=== PATIENT | male | born 1985 | race Caucasian/White ===

== ENCOUNTER 2021-08-04 19:33 | Emergency (ER) | payer MEDICARE, MEDICAID, SELFPAY ==
[2021-08-04 20:27] VITALS: BP 122/66; PULSE 68; RESP 16; TEMP 37.2; O2SAT 99; BMI 20.5
--- NOTE | 2021-08-04 22:22 | ED_ITS ---
HPI - Skin/Abscess/Foreign Bdy General Chief complaint: Skin/Abscess/Foreign Body Stated complaint: piece of metal in finger Time Seen by Provider: 08/04/21 22:21 Source: patient Mode of arrival: ambulatory Limitations: no limitations History of Present Illness HPI narrative: Patient was working on the car small metal wire went into his right thumb he removed the part of it does still feel small part the left thumb other injuries Related Data Allergies Allergy/AdvReac Type Severity Reaction Status Date / Time No Known Allergies Allergy Verified 08/04/21 20:30 Review of Systems Review of Systems: Yes all other systems are reviewed and are negative [facility] Past Medical History Attestation statement: The following information was validated with the patient. Social History Social History Advance Directives: No Advance Directives Information Provided: No Physical Exam Vital Signs: Vital Signs: Last Vital Signs Temp 98.9 F 08/04/21 20:27 Pulse 68 08/04/21 20:27 Resp 16 08/04/21 20:27 BP 122/66 08/04/21 20:27 Pulse Ox 99 08/04/21 20:27 BMI result Body Mass Index 20.5 Extrem: Hand/finger images: 1. Small piece of metal at the tip of right thumb with local tenderness Procedures Foreign Body Removal Time Out Performed: yes Site: right and hand (Right thumb) Description of foreign body: other (Metal wire) Sedation/Analgesia: other (Local infiltration of lidocaine) Technique: manual removal (Using needle) Confirmed by:: direct visualization Complications: none Discharge Plan Discharge Clinical Impression: Metal foreign body in thumb Patient Disposition: Home, Self-Care Instructions: Soft Tissue Foreign Body (ED) Additional Instructions: Local care of the wound as advised Report to the ER/PCP if any concerns/increased pain or swelling
[2021-08-04] MEDS: Lidocaine HCl 2 % MPF 5 ML VIAL INFILTRATI (22:48)
[2021-08-04] MEDS: Diphth,Pertus(ACell),Tet Adult 0.5 ML SYRINGE IM (23:19)
== END 2021-08-04 23:24 | disposition home or self-care (01) ==
PROVIDERS: Emergency Provider Internal Medicine; PCP Nurse Practitioner Family
DX: M79.5 Residual foreign body in soft tissue (principal)
CPT/HCPCS: 10120; 90471; 90715; 99283; 99284

== ENCOUNTER 2022-12-13 17:20 | Emergency (ER) | payer MEDICARE, MEDICAID, SELFPAY ==
[2022-12-13 17:57] VITALS: BP 126/80; PULSE 62; RESP 16; TEMP 37.4; O2SAT 97; BMI 21.6
--- NOTE | 2022-12-13 17:57 | ED_ITS ---
HPI - Skin/Abscess/Foreign Bdy General Chief complaint: Skin/Abscess/Foreign Body Stated complaint: body rash Time Seen by Provider: 12/13/22 17:58 Source: patient Mode of arrival: ambulatory Limitations: no limitations History of Present Illness HPI narrative: 37 yo male here with complaints of itching rash x 1 month despite completing 7 day course of prednisone. Patient reports he has been using Cetaphil products. He has also use cortisone 10 intermittently. The rash is itchy at night time more. No difficulty breathing, vomiting, diarrhea, abdominal cramping. No new medications, products, detergents. Related Data Previous Rx's Medication Instructions Recorded cetirizine 10 mg tablet (Zyrtec) 10 mg PO DAILY #30 tabs 12/13/22 hydrocortisone 2.5 % topical cream 1 appl topical QID PRN itching 12/13/22 #453.6 grams hydroxyzine HCl 50 mg tablet 50 mg PO TID PRN itching #30 tabs 12/13/22 prednisone 20 mg tablet 40 mg PO DAILY #14 tabs 12/13/22 Allergies Allergy/AdvReac Type Severity Reaction Status Date / Time No Known Allergies Allergy Verified 12/13/22 17:57 Review of Systems Review of Systems: Yes all other systems are reviewed and are negative Constitutional: Constitutional: Reports no additional constitutional complaints, Denies body ache(s), Denies chills, Denies fever(s), Denies headache(s) and Denies weakness Eyes: Eyes: Reports no additional eye complaints and Denies change in vision ENT: Reports system reviewed and no additional complaints, except as docume nted, Denies dizziness, Denies headache(s), Denies nasal congestion, Denies nasal discharge and Denies neck pain Cardiovascular: Cardiovascular: Reports no additional cardiovascular complaints, Denies chest pain, Denies leg edema and Denies dyspnea Respiratory: Respiratory: Reports no additional respiratory complaints, Denies cough and Denies dyspnea Gastrointestinal: Gastrointestinal: Reports no additional gastrointestinal complaints, Denies abdominal pain, Denies diarrhea, Denies nausea and Denies vomiting Genitourinary: Genitourinary: Denies urinary incontinence Musculoskeletal: Musculoskeletal: Reports no additional musculoskeletal complaints, Denies back pain, Denies arthralgias, Denies joint swelling, Denies neck pain, Denies numbness and Denies tingling Integumentary/Breasts: Skin/Breast: Reports system reviewed and no additional complaints, except as docu and Reports rash Neurologic: Reports system reviewed and no additional complaints, except as documented, Denies Abnormal speech present, Denies dizziness, Denies headache (s), Denies numbness, Denies tingling and Denies weakness PMFSH Past Medical History Attestation statement: The following information was validated with the patient. Source: old records reviewed and nursing notes reviewed Social History Social History Advance Directives: No Advance Directives Information Provided: No Physical Exam Vital Signs: Vital Signs: Last Vital Signs Temp 99.3 F 12/13/22 17:57 Pulse 62 12/13/22 17:57 Resp 16 12/13/22 17:57 BP 126/80 12/13/22 17:57 Pulse Ox 97 12/13/22 17:57 O2 Del Method Room Air 12/13/22 17:57 BMI result Body Mass Index 21.6 Const: General: cooperative, healthy appearing, comfortable and no acute distress Orientation/consciousness: patient oriented x3 Limitations: no limitations HEENT: Head: Yes normal to inspection Ears: hearing grossly normal bilaterally General nose exam: Normal external nose present Face and sinus: Yes normal facial exam Mouth: Normal oral and palatal mucosa present Throat: Yes posterior oropharynx normal Eyes: General: appearance normal, both eyes and all related structures Pupils: Equal, round and reactive pupils present Neck: Neck: Yes normal visual inspection Chest: Chest palpation & inspection: normal inspection of the chest Resp: Effort & Inspection: normal respiratory effort Auscultation: clear to auscultation bilaterally Cardio: Rate: regular rate Rhythm: regular rhythm Peripheral pulses: Peripheral pulses 2+ throughout GI: Inspection: Yes normal to inspection Palpation (GI): Soft to palpation and nontender Auscultation: normal bowel sounds Back/Spine/Pelvis: Thoracic/Lumbar Spine: thoracic and lumbar spine normal to inspection Skin: Other: Over the trunk, arms there is a macular papular rash noted. It is blanchable. It is non sloughing. The palms are spared. The oropharynx is spared Neuro: General: patient oriented x3, no focal motor deficits and normal sensation to monofilament Cranial nerves: Yes Equal, round and reactive pupils present Cognition (Neuro): normal cognition Speech: No Abnormal speech present Gait exam (Neuro): Normal gait present Motor exam (neuro): 5/5 motor strength present throughout Extrem: General: Yes normal to inspection Medical Decision Making Medical Decision Making MDM Narrative: 37 yo male here with complaints of itching rash x 1 month despite completing 7 day course of prednisone. Patient reports he has been using Cetaphil products. He has also use cortisone 10 intermittently. The rash is itchy at night time more. No difficulty breathing, vomiting, diarrhea, abdominal cramping. No new medications, products, detergents. On exam is a macular papular rash which is blanchable. The oropharynx and palms are spared. Lungs are clear No angioedema May be dermatitis. Patient would likely benefit from Dermatology referral due to length of symptoms. He will need to obtain this from his primary care. And the meantime I will start him back on a prednisone course, give him hydroxyzine p.r.n., hydrocortisone p.r.n., Zyrtec daily Reviewed worrisome signs and symptoms of when to return to the emergency room. Comfortable plan for discharge home. Differential Diagnosis Differential Diagnoses: The differential diagnosis associated with the presentation includes Dermatitis Low concern for SJS or TEN or dress syndrome Admission/Observation Consideration of admission/observation: Escalation of care including admission/observation considered No airway involvement or angioedema necessitating IV steroids or epinephrine and observation Prescription Management I considered prescription management with: Other (Prednisone) Discharge Plan Discharge Clinical Impression: Urticaria Patient Disposition: Home, Self-Care Instructions: Urticaria (ED) Additional Instructions: Follow-up with primary care doctor and ask for referral to see Dermatology Prescriptions: New prednisone 20 mg tablet 40 mg PO DAILY Qty: 14 0RF cetirizine [Zyrtec] 10 mg tablet 10 mg PO DAILY Qty: 30 0RF hydroxyzine HCl 50 mg tablet 50 mg PO TID PRN (Reason: itching) Qty: 30 0RF hydrocortisone 2.5 % cream 1 appl topical QID PRN (Reason: itching) Qty: 453.6 0RF Referrals: Brianna Mcneal, [employer] [Primary Care Provider] - 1 week
== END 2022-12-13 18:14 | disposition home or self-care (01) ==
PROVIDERS: Emergency Provider Student in an Organized Health Care Education/Training Program; PCP Nurse Practitioner Family
DX: L50.9 Urticaria, unspecified (principal)
CPT/HCPCS: 99282; 99283

== ENCOUNTER 2023-04-18 08:14 | Emergency (ER) | payer MEDICARE, MEDICAID, SELFPAY ==
--- NOTE | ~2023-04-18 | CT_ITS ---
EXAMINATION: CT ABDOMEN AND PELVIS WITHOUT CONTRAST CLINICAL INFORMATION: Left flank and lower abdominal pain. COMPARISON: None available. TECHNIQUE: Multidetector volumetric imaging was performed from the superior aspect of the liver through the pubic symphysis. Sagittal and coronal reformatted images were obtained on the technologist's workstation. This CT examination was performed using dose optimization techniques as appropriate, variously including the following: *Automated exposure control *Adjustment of mA and/or kV according to patient size (this includes techniques or standardized protocols for targeted exams where dose is matched to indication/reason for exam; i.e. extremities or head) *Use of iterative reconstruction technique DLP: 382 mGy-cm FINDINGS: Lung bases are unremarkable. Liver, gallbladder, pancreas and spleen have a normal appearance on this noncontrast examination. Adrenal glands are normal. Kidneys are normal in size. Questionable finding of punctate calyceal stone of the mid right kidney (coronal reformatted image 47, series 5). No large stones in either kidney. Mild left hydronephrosis and hydroureter with perinephric edema. A stone measuring up to 0.4 cm projects along left posterior bladder wall in the region of the ureteral orifice. Urinary bladder is underdistended and not optimally evaluated. Abdominal aorta is normal in caliber. No pathologic sized lymph nodes. No dilated bowel loops. The appendix is normal. No focal bowel wall thickening, mesenteric fat stranding or free fluid. A small fat-containing umbilical hernia is noted. Prostate gland is unremarkable. No pelvic free fluid. No acute or suspicious osseous abnormality. Mild osteoarthrosis of the hips. The configuration of each femoral head suggests that there could be a predisposition to cam-type femoroacetabular impingement. CT/CT abdomen pelvis wo IV con IMPRESSION: Mild left hydronephrosis and mild perinephric edema are caused by a stone seen at the posterior left urinary bladder, likely within the ureteral orifice at the ureterovesical junction.
[2023-04-18 08:31] VITALS: BP 149/76; PULSE 83; RESP 18; TEMP 36.7; O2SAT 97
[2023-04-18 09:13] LABS: Anion Gap 13 (12-20); Blood Urea Nitrogen 13 mg/dL (9-16); Calcium 9.3 mg/dL (8.4-10.2); Carbon Dioxide 26 mmol/L (22-29); Chloride 106 mmol/L (96-108); Estimated Glomerular Filt Rate > 60; Glucose Random 118 mg/dL (60-115); Potassium 4.2 mmol/L (3.3-5.1); Sodium 141 mmol/L (135-145)
[2023-04-18 10:05] LABS: IDNOW Serial# 08D9AD1C; Influenza A Negative (Negative); Influenza B2 Negative (Negative)
[2023-04-18 10:06] VITALS: RESP 17
--- NOTE | 2023-04-18 10:07 | ED.ABDPAIN ---
HPI - Abdominal Pain General Chief Complaint: Abdominal Pain Stated Complaint: Abd pain Time Seen by Provider: 04/18/23 10:04 Source: patient Mode of arrival: ambulatory Limitations: no limitations History of Present Illness HPI narrative: left lower and left flank pain starting this morning, no prior surgeries no history of renal colic MD elicited complaint: abdominal pain and flank pain Related Data Previous Rx's Medication Instructions Recorded cetirizine 10 mg tablet (Zyrtec) 10 mg PO DAILY #30 tabs 12/13/22 hydrocortisone 2.5 % topical cream 1 appl topical QID PRN itching 12/13/22 #453.6 grams hydroxyzine HCl 50 mg tablet 50 mg PO TID PRN itching #30 tabs 12/13/22 prednisone 20 mg tablet 40 mg (2 x 20 mg) PO DAILY #14 tabs 12/13/22 naproxen 500 mg tablet (Naprosyn) 500 mg PO BID #20 tabs 04/18/23 ondansetron 4 mg disintegrating 4 mg PO Q8H 4 days #12 tabs 04/18/23 tablet Allergies Allergy/AdvReac Type Severity Reaction Status Date / Time No Known Allergies Allergy Verified 12/13/22 17:57 Review of Systems Review of Systems Yes all other systems are reviewed and are negative Denies Sensory deficit (Neuro) [facility] Social History Social History Advance Directives: No Physical Exam ED Vital Signs: Vital Signs - 24 hr 04/18/23 08:31 04/18/23 10:06 Temperature 98.1 F Pulse Rate 83 Respiratory Rate 18 17 Blood Pressure 149/76 H Pulse Oximetry 97 Oxygen Delivery Method Room Air BMI result Body Mass Index 0.0 Const Other: in colicky pain General: healthy appearing Nutritional Appearance: average body habitus Orientation/consciousness: oriented to person and patient oriented x3 Limitations: no limitations HENMT Head: Yes normal to inspection Ears: external ears normal General nose exam: Normal external nose present Mouth: Normal oral and palatal mucosa present and oropharynx normal Throat: Yes posterior oropharynx normal Eyes General: appearance normal, both eyes and all related structures Neck Neck: Yes normal visual inspection Chest Chest palpation & inspection: normal inspection of the chest Resp Auscultation: clear to auscultation bilaterally Cardio Jugular venous distension: no JVD Rate: regular rate Rhythm: regular rhythm Heart sounds: S1 normal heart sound present and S2 normal heart sound present GI Inspection: Yes normal to inspection Palpation (GI): Soft to palpation, nontender and No hepatosplenomegaly present Auscultation: normal bowel sounds Back/Spine/Pelvis Other: left CVAT Skin General skin exam: no rashes or lesions noted Neuro General: oriented to person and patient oriented x3 Cranial nerves: Yes CN's II-XII intact bilaterally Motor exam (neuro): 5/5 motor strength present throughout Sensory Exam: No Sensory deficit (Neuro) Extrem General: Yes normal to inspection Psych Appearance: grossly normal Course Reevaluation(s) Reevaluation #1: Patient improved looks like he passed his stone on CT Time: 11:35 Time: 11:34 Medical Decision Making Differential Diagnosis Differential Diagnoses: The differential diagnosis associated with the presentation includes (kidney stone, hydronephrosis, pyelonephrosis were all considered) Admission/Observation Consideration of admission/observation: Escalation of care including admission/observation considered (upon arrival patient was considered for admission) Lab Data 04/18/23 08:50 Labs: Lab Results 04/18/23 04/18/23 Range/Units 08:50 10:25 Sodium 141 (135-145) mmol/L Potassium 4.2 (3.3-5.1) mmol/L Chloride 106 (96-108) mmol/L Carbon Dioxide 26 (22-29) mmol/L Anion Gap 13 (12-20) BUN 13 (9-16) mg/dL Creatinine 0.90 (0.5-1.4) mg/dL Estim Creat Clear Calc TNP Estimated GFR > 60 Random Glucose 118 H (60-115) mg/dL Calcium 9.3 (8.4-10.2) mg/dL Urine Color Yellow Urine Appearance Cloudy Urine pH 5.5 (5.0-9.0) Ur Specific [place] >= 1.030 H (1.005-1.025) Urine Protein 30 (1+) H (Neg-Trace) mg/dL Urine Glucose (UA) Negative (Negative) mg/dL Urine Ketones Trace (Negative) mg/dL Urine Blood Large (3+) H (Negative) Urine Nitrite Negative (Negative) Ur Leukocyte Esterase Trace H (Negative) Urine RBC 11-20 H (0-2) /HPF Urine WBC 0-5 (0-5) /HPF Ur Squamous Epith Cells 0-2 (0-2) /HPF Calcium Oxalate Crystal Present Urine Bacteria None Seen (None Seen) Hyaline Casts 0-2 (0-2) /LPF Influenza Type A (NILE) Negative (Negative) Influenza Type B (NILE) Negative (Negative) Influenza A & B Note See Note Independent Interpretation I performed an independent interpretation of an: CT Scan (mild left hydro with mild perinephric stranding) Independent Historian Clinical information obtained from an independent historian. History obtained from or confirmed by: EMS Prescription Management I considered prescription management with: Antibiotic (no evidence of UTI on UA) Medications Administered Discontinued Medications Generic Name Dose Route Start Last Admin Trade Name Freq PRN Reason Stop Dose Admin Sodium Chloride 500 mls @ 999 mls/hr 04/18/23 10:15 04/18/23 10:18 Ns IV 04/18/23 10:45 999 mls/hr .Q31M HILARIO Administration Ketorolac Tromethamine 30 mg 04/18/23 10:07 04/18/23 10:18 Ketorolac Tromethamine 30 Mg/Ml Vial IVPUSH 04/18/23 10:08 30 mg ONCE ONE Administration Ondansetron HCl 4 mg 04/18/23 10:09 04/18/23 10:18 Ondansetron Hcl 4 Mg/2 Ml Vial IVPUSH 04/18/23 10:10 4 mg ONCE ONE Administration Discharge Plan Discharge Clinical Impression: Kidney stone, Hydronephrosis Patient Disposition: Home, Self-Care Instructions: Kidney Stones (ED), Hydronephrosis (ED) Prescriptions: New ondansetron 4 mg tablet,disintegrating 4 mg PO Q8H 4 Days Qty: 12 0RF naproxen [Naprosyn] 500 mg tablet 500 mg PO BID Qty: 20 0RF No Action prednisone 20 mg tablet 40 mg PO DAILY Qty: 14 0RF cetirizine [Zyrtec] 10 mg tablet 10 mg PO DAILY Qty: 30 0RF hydroxyzine HCl 50 mg tablet 50 mg PO TID PRN (Reason: itching) Qty: 30 0RF hydrocortisone 2.5 % cream 1 appl topical QID PRN (Reason: itching) Qty: 453.6 0RF Referrals: Brianna Mcneal, [employer] [Primary Care Provider] - 5 days
[2023-04-18] MEDS: Ketorolac Tromethamine 30 MG/ML VIAL IVPUSH (10:18)
[2023-04-18] MEDS: 0.9 % Sodium Chloride 500 ML 999 ML IV (10:18)
[2023-04-18] MEDS: ondansetron HCL 4 MG/2 ML VIAL IVPUSH (10:18)
[2023-04-18 10:46] LABS: Appearance Urine Cloudy; Color Urine Yellow; Glucose Urine UA Negative (Negative); Leukocyte Esterase Urine Trace (Negative); Nitrite Urine Negative (Negative); PH 5.5 (5.0-9.0); Specific Gravity - Urine >= 1.030 (1.005-1.025); UMIC TRIGGER UACC YES; Urine Blood Large (3+) (Negative); Urine Ketones Trace mg/dL (Negative); Urine Protein 30 (1+) mg/dL (Neg-Trace)
[2023-04-18 11:16] LABS: WBC Urine 0-5 /HPF (0-5)
[2023-04-18 11:17] LABS: Bacteria Urine None Seen (None Seen); Hyaline Casts Urine 0-2 /LPF (0-2); Squamous Epithelial Cell Urine 0-2 /HPF (0-2)
[2023-04-18 11:18] LABS: Calcium Oxalate Crystals Urine Present
== END 2023-04-18 11:54 | disposition home or self-care (01) ==
PROVIDERS: Emergency Provider Emergency Medicine; PCP Nurse Practitioner Family
DX: N13.2 Hydronephrosis with renal and ureteral calculous obstruction (principal); Z11.52 Encounter for screening for COVID-19
CPT/HCPCS: 74176; 80048; 81001; 87502; 96361; 96374; 96375; 99284; J1885; J2405

== ENCOUNTER 2023-07-07 21:12 | Emergency (ER) | payer MEDICARE, MEDICAID, SELFPAY ==
[2023-07-07 21:15] VITALS: BP 143/84; PULSE 66; RESP 18; TEMP 37; O2SAT 99; BMI 23.1
--- NOTE | 2023-07-07 21:52 | ED.GENADULT ---
HPI - General Adult General Chief complaint: Dental/Oral Stated complaint: root canal 2-3 months ago, still in pain Time Seen by Provider: 07/07/23 21:42 Source: patient Mode of arrival: ambulatory Limitations: no limitations History of Present Illness HPI narrative: Patient is a 37 year old assigned male at with no reported medical history presenting to the emergency department today with left lower dental pain. Patient states that 2-3 months ago he got a root canal and crown on his left lower molar and he has not been able to eat on that side since. Patient denies any dizziness, lightheadedness, abdominal pain, nausea, vomiting, fever, chills, blurry vision, double vision, loss of vision, chest pain, difficulty breathing, shortness of breath, back pain, night sweats, pain with urination, increased urinary frequency, increased urinary urgency, blood in his urine or stool, syncope or a near syncopal episode, recent trauma or falls, bowel incontinence, bladder incontinence, bowel retention, bladder retention, or any other complaints at this time. Onset (ago): month(s) (2-3) Location: mouth and left Radiation: non-radiation Severity: mild Severity scale (1-10): 4 Quality: aching and dull Pain Consistency: constant Relieving factors: none Exacerbating factors: other (chewing) Associated symptoms: denies other symptoms Treatments prior to arrival: none Related Data Previous Rx's Medication Instructions Recorded cetirizine 10 mg tablet (Zyrtec) 10 mg PO DAILY #30 tabs 12/13/22 hydrocortisone 2.5 % topical cream 1 appl topical QID PRN itching 12/13/22 #453.6 grams hydroxyzine HCl 50 mg tablet 50 mg PO TID PRN itching #30 tabs 12/13/22 prednisone 20 mg tablet 40 mg (2 x 20 mg) PO DAILY #14 tabs 12/13/22 naproxen 500 mg tablet (Naprosyn) 500 mg PO BID #20 tabs 04/18/23 ondansetron 4 mg disintegrating 4 mg PO Q8H 4 days #12 tabs 04/18/23 tablet naproxen 500 mg tablet 500 mg PO BID 7 days #14 tabs 07/07/23 penicillin V potassium 500 mg 500 mg PO BID 10 days #20 tabs 07/07/23 tablet Allergies Allergy/AdvReac Type Severity Reaction Status Date / Time No Known Allergies Allergy Verified 12/13/22 17:57 Review of Systems Constitutional: Constitutional: Reports no additional constitutional complaints, Denies chills, Denies fever(s) and Denies night sweats Eyes: Eyes: Reports no additional eye complaints, Denies blurry vision, Denies change in vision, Denies diplopia, Denies eye discharge, Denies loss of vision and Denies eye pain ENT: Denies dizziness Comments: left lower dental pain Cardiovascular: Cardiovascular: Reports no additional cardiovascular complaints, Denies chest pain, Denies lightheadedness, Denies Loss of Consciousness and Denies dyspnea Respiratory: Respiratory: Reports no additional respiratory complaints and Denies dyspnea Gastrointestinal: Gastrointestinal: Reports no additional gastrointestinal complaints, Denies abdominal pain, Denies melena, Denies hematochezia, Denies change in bowel habits and Denies change in stool character Genitourinary: Genitourinary: Reports no additional male genitourinary complaints, Denies hematuria, Denies oliguria, Denies difficulty urinating, Denies dysuria, Denies urinary frequency, Denies urinary hesitancy, Denies urinary incontinence and Denies urinary urgency Musculoskeletal: Musculoskeletal: Reports no additional musculoskeletal complaints, Denies numbness and Denies tingling Neurologic: Denies dizziness, Denies loss of vision, Denies numbness and Denies tingling Psychiatric: Psychiatric: Reports no additional psychiatric complaints Endocrine: Endocrine: Reports no additional endocrine complaints Hematologic/Lymphatic: Hematologic/Lymphatic: Reports no additional hematologic/lymphatic complaints Allergic/Immunologic: Allergic/Immunologic: Reports no additional allergic/immunologic complaints [facility] Past Medical History Attestation statement: The following information was validated with the patient. Source: old records reviewed and nursing notes reviewed Social History Social History Advance Directives: No Advance Directives Information Provided: No Physical Exam ED Vital Signs: Vital Signs - 24 hr 07/07/23 21:15 07/07/23 21:56 07/07/23 22:05 Temperature 98.6 F 98.0 F Pulse Rate 66 61 Respiratory Rate 18 12 Blood Pressure 143/84 H 127/76 Pulse Oximetry 99 97 Oxygen Delivery Method Room Air Room Air 07/07/23 22:24 Temperature 98.0 F Pulse Rate 61 Respiratory Rate 12 Blood Pressure 127/76 Pulse Oximetry 97 Oxygen Delivery Method Room Air BMI result Body Mass Index 23.1 Const General: cooperative, no acute distress, alert and awake Nutritional Appearance: well nourished Orientation/consciousness: patient oriented x3 Limitations: no limitations HENMT Head: Yes normal to inspection and Yes atraumatic Ears: hearing grossly normal bilaterally and external ears normal General nose exam: Normal external nose present, no nasal discharge noted and no epistaxis Face and sinus: Yes normal facial exam, No abrasion and No laceration Mouth: Normal oral and palatal mucosa present, no drooling and no muffled voice Teeth image: 1. pain with palpation of tooth 17 and 18 Eyes General: appearance normal, both eyes and all related structures Periorbital: periorbital findings normal Eyelids: Yes eyelids normal Conjunctivae: conjunctivae normal Pupils: Equal, round and reactive pupils present EOM: EOMs intact bilaterally Neck Neck: Yes normal visual inspection, Yes full ROM and Yes no lymphadenopathy Chest Chest palpation & inspection: normal inspection of the chest Resp Effort & Inspection: normal respiratory effort and able to speak in complete sentences GI Inspection: Yes normal to inspection Neuro General: patient oriented x3 and moves all extremities Cranial nerves: Yes Equal, round and reactive pupils present Cognition (Neuro): normal cognition Motor exam (neuro): 5/5 motor strength present throughout Sensory Exam: Normal double simultaneous stimulation for sensation Coordination: [id number] test normal Extrem General: Yes normal to inspection, Yes full ROM and Yes capillary refill normal Psych Appearance: grossly normal Mental Status: mental status grossly normal Affect: normal affect Attitude: cooperative Thought process: Normal thought process present Thought content: Normal thought content present Insight: Good insight present (Psych) Medications Administered Discontinued Medications Generic Name Dose Route Start Last Admin Trade Name Evelioq PRN Reason Stop Dose Admin Oxycodone HCl 10 mg 07/07/23 21:52 07/07/23 22:03 Oxycodone Hcl Immed Release 5 Mg Tablet PO 07/07/23 21:53 10 mg ONCE ONE Administration Penicillin V Potassium 500 mg 07/07/23 21:52 07/07/23 22:03 Penicillin V Potassium 250 Mg Tablet PO 07/07/23 21:53 500 mg ONCE ONE Administration Medical Decision Making Medical Decision Making MDM Narrative: Patient is a 37 year old assigned male at with no reported medical history presenting to the emergency department today with left lower dental pain. Patient's physical exam showed tenderness of palpation of the left lower molars (17 and 18). I suspect that the patient's #18 tooth underneath the crown is decaying and will need to be removed. Will treat for possible underlying dental abscess. I explained my physical exam findings to the patient. I answered all questions asked by the patient. I stressed the importance of the patient taking his medication as prescribed. I stressed the importance of the patient following up with his primary care provider and his dentist. I stressed the importance of the patient returning to the emergency department immediately if his symptoms were to worsen or if he were to develop any dizziness, shortness of breath, difficulty breathing, chest pain, blurry vision, loss of vision, nausea, vomiting, abdominal pain, fever, chills, back pain, or any other complaints. Patient verbalized agreement and understanding with this treatment plan and discharge. Differential Diagnosis Differential Diagnoses: The differential diagnosis associated with the presentation includes Dental abscess Dental pain Admission/Observation Consideration of admission/observation: Escalation of care including admission/observation considered Patient would have been admitted to the hospital had his clinical presentation warranted hospital admission. Prescription Management I considered prescription management with: Pain Medication (patient prescribed pain medication) and Antibiotic (patient prescribed an antibiotic to cover possible dental abscess) Discharge Plan Discharge Clinical Impression: Dental abscess Patient Disposition: Home, Self-Care Instructions: Dental Abscess (ED) Additional Instructions: Follow up with your primary care provider and a dentist. Return to the emergency department immediately if your symptoms worsen or if you develop any dizziness, shortness of breath, difficulty breathing, chest pain, blurry vision, loss of vision, nausea, vomiting, abdominal pain, fever, chills, back pain, or any other complaints. Call or visit any of the clinics below to establish with a dentist: [facility] [address] [place] [address] [facility] [address] [facility], [address] Cricket Romero [address] [place] [address] [facility] [address] [place] [id number] [facility] [address] [place] [address] [place] [address] [place] [id number] Prescriptions: New penicillin V potassium 500 mg tablet 500 mg PO BID 10 Days Qty: 20 0RF naproxen 500 mg tablet 500 mg PO BID 7 Days Qty: 14 0RF No Action prednisone 20 mg tablet 40 mg PO DAILY Qty: 14 0RF cetirizine [Zyrtec] 10 mg tablet 10 mg PO DAILY Qty: 30 0RF hydroxyzine HCl 50 mg tablet 50 mg PO TID PRN (Reason: itching) Qty: 30 0RF hydrocortisone 2.5 % cream 1 appl topical QID PRN (Reason: itching) Qty: 453.6 0RF ondansetron 4 mg tablet,disintegrating 4 mg PO Q8H 4 Days Qty: 12 0RF naproxen [Naprosyn] 500 mg tablet 500 mg PO BID Qty: 20 0RF Referrals: Brianna Mcneal FLIGHT TEST ENGINEER [Primary Care Provider] - Stand Alone Forms: Work/School Release Interventions: ED Discharge Assessment Last Done: 07/07/23 22:24 Discharge Date/Time: 07/07/23 22:24 Print Language: Tamazight
[2023-07-07 21:56] VITALS: BP 127/76; PULSE 61; RESP 12; O2SAT 97
[2023-07-07] MEDS: oxyCODONE HCl Immed Release 5 MG TABLET 10 MG PO (22:03)
[2023-07-07] MEDS: Penicillin V Potassium 250 MG TABLET 500 MG PO (22:03)
[2023-07-07 22:05] VITALS: TEMP 36.7
[2023-07-07 22:24] VITALS: BP 127/76; PULSE 61; RESP 12; TEMP 36.7; O2SAT 97
== END 2023-07-07 22:24 | disposition home or self-care (01) ==
PROVIDERS: Emergency Provider Emergency Medicine Emergency Medical Services; PCP Nurse Practitioner Family
DX: K04.7 Periapical abscess without sinus (principal)
CPT/HCPCS: 99283; 99284

== ENCOUNTER 2024-08-29 05:20 | Emergency (ER) | payer OTHER, SELFPAY ==
[2024-08-29 05:22] VITALS: BP 127/74; PULSE 64; RESP 12; TEMP 36.6; O2SAT 99; BMI 23.9
--- NOTE | 2024-08-29 05:37 | ED_ITS ---
HPI - General Adult General Chief complaint: Back Pain/Injury Stated complaint: Neck/Back pain Time Seen by Provider: 08/29/24 05:30 Source: patient Mode of arrival: ambulatory Limitations: no limitations History of Present Illness ED Provider: Dr. Dominique Mendoza HPI narrative: Patient comes to the emergency room complaining of right-sided neck pain suprascapular area pain and upper back pain on the right. Patient states that he did not get injured in any way, no heavy lifting. Patient went to bed in the next day when he woke up he had that pain. Patient states it is worse when he moves certain ways. Patient has a hard time turning his head to the right and left, no issues with flexion and extension, no neck rigidity, patient denies fever chills Related Data Previous Rx's ?Medication ?Instructions ?Recorded cetirizine 10 mg tablet (Zyrtec) 10 mg PO DAILY #30 tabs 12/13/22 hydrocortisone 2.5 % topical cream 1 appl topical QID PRN itching 12/13/22 #453.6 grams hydroxyzine HCl 50 mg tablet 50 mg PO TID PRN itching #30 tabs 12/13/22 prednisone 20 mg tablet 40 mg (2 x 20 mg) PO DAILY #14 tabs 12/13/22 naproxen 500 mg tablet (Naprosyn) 500 mg PO BID #20 tabs 04/18/23 ondansetron 4 mg disintegrating 4 mg PO Q8H 4 days #12 tabs 04/18/23 tablet naproxen 500 mg tablet 500 mg PO BID 7 days #14 tabs 07/07/23 penicillin V potassium 500 mg 500 mg PO BID 10 days #20 tabs 07/07/23 tablet cyclobenzaprine 10 mg tablet 10 mg PO TID PRN muscle spasm #12 08/29/24 tabs ibuprofen 600 mg tablet 600 mg PO Q8H PRN fever or pain 08/29/24 #30 tabs Allergies Allergy/AdvReac Type Severity Reaction Status Date / Time No Known Allergies Allergy Verified 08/29/24 05:25 Review of Systems Review of Systems: Constitutional : No Weight loss, No Fever, No Chills, No Night Sweats, No Fatigue, No Malaise ENT/Mouth : No Hearing loss, No Ear Pain, No Nasal Congestion, No Sinus Pain, No Hoarseness, No sore throat, No Rhinorrhea, No Swallowing Difficulty Eyes: No Eye Pain, No Swelling, No Redness, No Foreign Body, No Discharge, No Vision Changes Cardiovascular : No Chest Pain, No SOB, No Dyspnea on Exertion, No Orthopnea, No Edema, No Palpitations Respiratory : No Cough, No Sputum, No Wheezing, No Smoke Exposure, No Dyspnea Gastrointestinal : No Nausea, No Vomiting, No Diarrhea, No Constipation, No abdominal Pain, No Hematochezia, No Melena Genitourinary : no irregular bleeding, No Dysuria, No Urinary Frequency, No Hematuria, No Urinary Incontinence, No Urgency, No Flank Pain, No Urinary Flow Changes, No Hesitancy Musculoskeletal : complaining of right-sided neck pain suprascapular area and upper back pain, No joint pain, No Myalgias, No Joint Swelling Skin : No Skin Lesions, No rash Neuro : No Weakness, No Numbness, No Paresthesias, No Loss of Consciousness, No Dizziness, No Headache Psych : No Anxiety/Panic, No Depression, No SI/HI/AH/VH, No Social Issues, Heme/Lymph: No Bruising, No Bleeding,No Lymphadenopathy Endocrine : No Polyuria, No Polydipsia, No Temperature Intolerance [facility] Social History Social History Do you have a plan to hurt others: No Plan Physical Exam ED Vital Signs: Vital Signs - 24 hr 08/29/24 05:22 Temperature 97.8 F Pulse Rate 64 Respiratory Rate 12 Blood Pressure 127/74 Pulse Oximetry 99 Oxygen Delivery Method Room Air BMI result Body Mass Index 23.9 Const Other: Appearance: Alert. Oriented X3. No acute distress. Eyes: Pupils equal, round and reactive to light. horizontal nystagmus ENT: Pharynx normal. Neck: Normal inspection. Neck supple. No lymph nodes noted. No crepitus, palpable neck spasms to the right side of the neck and suprascapular area. CVS: Normal heart rate and rhythm. Pulses normal. Normal S1 and S2 Respiratory: No respiratory distress. Breath sounds normal. No Wheezing. No rales Abdomen: Soft and nontender. No rigidity. No distention. Skin: Skin warm and dry. Normal skin color. Normal skin turgor. Extremities: No lower extremity edema. No Lacerations. No Rash Neuro: Oriented X 3. No motor deficit. No sensory deficit. Moving all extremities. No slurred speech. CN 2 through 12 grossly intact Psych: calm, cooperative, normal affect Course Course Course Narrative: patient complaining of right-sided neck pain that started after the patient woke up, consistent with torticollis on physical exam it was noted that patient has very obvious horizontal nystagmus. Patient states that he has has had nystagmus since he was a toddler Medical Decision Making Medical Decision Making [facility] Narrative: I discussed the physical exam with the patient, patient has torticollis Discharge Plan Discharge Clinical Impression: Acute torticollis Patient Disposition: Home, Self-Care Instructions: Spasmodic Torticollis (ED) Additional Instructions: Please follow-up with your primary care physician tomorrow. If you have any worsening or new symptoms, please return to the emergency room or call 911 Prescriptions: New ibuprofen 600 mg tablet 600 mg PO Q8H PRN (Reason: fever or pain) Qty: 30 0RF cyclobenzaprine 10 mg tablet 10 mg PO TID PRN (Reason: muscle spasm) Qty: 12 0RF Rx Instructions: do not drive or use machinery after taking this medication No Action prednisone 20 mg tablet 40 mg PO DAILY Qty: 14 0RF cetirizine [Zyrtec] 10 mg tablet 10 mg PO DAILY Qty: 30 0RF hydroxyzine HCl 50 mg tablet 50 mg PO TID PRN (Reason: itching) Qty: 30 0RF hydrocortisone 2.5 % cream 1 appl topical QID PRN (Reason: itching) Qty: 453.6 0RF penicillin V potassium 500 mg tablet 500 mg PO BID 10 Days Qty: 20 0RF naproxen 500 mg tablet 500 mg PO BID 7 Days Qty: 14 0RF ondansetron 4 mg tablet,disintegrating 4 mg PO Q8H 4 Days Qty: 12 0RF naproxen [Naprosyn] 500 mg tablet 500 mg PO BID Qty: 20 0RF Stand Alone Forms: Work/School Release Print Language: Lithuanian
[2024-08-29] MEDS: Ibuprofen 600 MG TABLET PO (05:48)
[2024-08-29 05:51] VITALS: BP 127/74; PULSE 64; RESP 12; TEMP 36.6; O2SAT 99
--- OUTSIDE RECORDS SUMMARY | 2024-08-29 05:57 | XMS_ITS | Clinical Summary ---
Author Organization [facility] Address [address] [place] [address] Care Team Providers Care Endocrinology Physician Name Role Phone Patient, Has No Pcp Or Ref Primary Care Provider Unavailable Allergies No known active allergies Medications cetirizine (ZyrTEC) 10 mg tablet SMARTSI Tablet(s) By Mouth Daily 3 Active clotrimazole (LOTRIMIN) 1 % solution 2 times a day. Apply to affected area 3 Active fluticasone propionate (FLONASE) 50 mcg/actuation nasal spray SMARTSI [place](s) Both Nares Every Morning 3 Active hydrocortisone 2.5% cream SMARTSIG:Topi bear 4 Times Daily PRN 3 Active ibuprofen (MOTRIN) 800 mg tablet SMARTSI Tablet(s) By Mouth 3 Times Daily PRN 3 Active levocetirizine (XYZAL) 5 mg tablet 2 Active betamethasone valerate (VALISONE) 0.1% creamIndications :Rash and nonspecific skin eruption Apply twice daily x 2 weeks to rash or itchy areas, then daily x 2 weeks, then 2-3 times a week as needed. Do not use on face, underarms, groin, breasts, or buttocks. 45 g 11 3 Active hydrOXYzine HCL (ATARAX) 10 mg tabletIndication s:Rash and nonspecific skin eruption TAKE 10MG (1 TAB) EVERY 6 HOURS NEEDED FOR ITCH 360 tablet 1 3 Active Active Problems No known active problems Social History Tobacco Use Types Packs/Day Years Used Date Smoking Tobacco: Never Assessed Sex and Gender Information Value Date Recorded Sex Assigned at Not on file Legal Sex Male 4:39 PM EDT Gender Identity Not on file Sexual Orientation Not on file Plan of Treatment Health Maintenance Due Date Last Done Comments HIV Screening 1986 Hepatitis C Screening 1985 Medicare AWV 10/05/1987 Varicella Vaccines (1 of 2 - 13+ 2-dose series) 10/05/1999 Hepatitis B Vaccines (1 of 3 - 19+ 3-dose series) 2005 COVID-19 Vaccine (1 - season) 2023 Alcohol/Substance Use Screening 04/09/2024 Depression Screening and Follow-Up 04/09/2024 Social Drivers of Health Annual Screening 04/09/2024 Influenza Vaccine (Season Ended) 2024 02/23/2016, 05/01/2013, 02/05/2012, Additional history exists DTaP,Tdap,and Td Vaccines (3 - Td or Tdap) 02/22/2026 02/23/2016, 03/06/2004 RSV Vaccine (60+ years old and patients) (1 - 1-dose 75+ series) 2061 Pneumococcal Vaccine: Pediatric (0-5 Years) and At-Risk Patients (6-50 Years) Aged Out No longer eligible based on patient's age to complete this topic Insurance [facility] MEDICARE Care Teams Endocrinology Physician Relationship Specialty Start Date End Date Patient, Has No Pcp Or Ref DO NOT EDIT THIS RECORD VIA PROVIDER ON THE FLY PCP - General College And Career Counselor 01/10/23
== END 2024-08-29 05:54 | disposition home or self-care (01) ==
LOC: HO.ED 05:55
PROVIDERS: Emergency Provider Emergency Medicine; PCP Nurse Practitioner Family
DX: M43.6 Torticollis (principal); M54.50 Low back pain, unspecified
CPT/HCPCS: 99283

== ENCOUNTER 2024-10-17 12:10 | Emergency (ER) | payer OTHER, SELFPAY ==
[2024-10-17 12:26] VITALS: BP 122/71; PULSE 66; RESP 16; TEMP 36.4; O2SAT 99; BMI 23.0
--- NOTE | 2024-10-17 12:29 | ED.GENADULT ---
HPI - General Adult General Chief complaint: GI Bleed Stated complaint: Rectal Bleed Time Seen by Provider: 10/17/24 12:50 Source: patient Mode of arrival: ambulatory Limitations: no limitations History of Present Illness ED Provider: Taty Cornelius HPI narrative: 39 yold male with no pmh presents to the ED for rectal bleeding for one week and mild rectal pain. patient denies any abdominal pain, nausea, vomiting, recent trauma, fever, or chills. Patient states stool is brown. Related Data Previous Rx's ?Medication ?Instructions ?Recorded cetirizine 10 mg tablet (Zyrtec) 10 mg PO DAILY #30 tabs 12/13/22 hydrocortisone 2.5 % topical cream 1 appl topical QID PRN itching 12/13/22 #453.6 grams hydroxyzine HCl 50 mg tablet 50 mg PO TID PRN itching #30 tabs 12/13/22 prednisone 20 mg tablet 40 mg (2 x 20 mg) PO DAILY #14 tabs 12/13/22 naproxen 500 mg tablet (Naprosyn) 500 mg PO BID #20 tabs 04/18/23 ondansetron 4 mg disintegrating 4 mg PO Q8H 4 days #12 tabs 04/18/23 tablet naproxen 500 mg tablet 500 mg PO BID 7 days #14 tabs 07/07/23 penicillin V potassium 500 mg 500 mg PO BID 10 days #20 tabs 07/07/23 tablet cyclobenzaprine 10 mg tablet 10 mg PO TID PRN muscle spasm #12 08/29/24 tabs ibuprofen 600 mg tablet 600 mg PO Q8H PRN fever or pain 08/29/24 #30 tabs Allergies Allergy/AdvReac Type Severity Reaction Status Date / Time No Known Allergies Allergy Verified 10/17/24 12:30 Review of Systems Review of Systems: rectal bleeding Yes all other systems are reviewed and are negative PMFSH Social History Social History Advance Directives: No Advance Directives Information Provided: Yes Do you have a plan to hurt others: No Plan Physical Exam ED Vital Signs: Vital Signs - 24 hr 10/17/24 12:26 Temperature 97.6 F Pulse Rate 66 Respiratory Rate 16 Blood Pressure 122/71 Pulse Oximetry 99 Oxygen Delivery Method Room Air BMI result Body Mass Index 23.0 Const General: cooperative, healthy appearing, comfortable, no acute distress, well developed, alert, awake and Physically active Orientation/consciousness: patient oriented x3 [facility] Head: Yes normal to inspection, Yes No palpable skull fracture present, Yes normocephalic and Yes atraumatic Eyes General: appearance normal, both eyes and all related structures Neck Neck: Yes normal visual inspection, Yes full ROM, Yes no lymphadenopathy, Yes no meningeal signs, Yes trachea midline, Yes supple, No anterior neck swelling and No tender Chest Chest palpation & inspection: normal inspection of the chest and normal palpation of entire chest wall Resp Effort & Inspection: normal respiratory effort and able to speak in complete sentences Auscultation: clear to auscultation bilaterally Cardio Jugular venous distension: no JVD Heart sounds: S1 normal heart sound present and S2 normal heart sound present GI Inspection: Yes normal to inspection Palpation (GI): Soft to palpation, not firm, nontender, no guarding and not rigid Other: patient refused rectal exam General: Yes no CVA tenderness Back/Spine/Pelvis Back: no CVA tenderness and No back tenderness Skin General skin exam: no rashes or lesions noted, elasticity normal and turgor normal Neuro General: patient oriented x3, gait normal, tone normal, moves all extremities, Normal light touch and pain sensation, no meningeal signs, no focal motor deficits, CN's II-XI intact bilaterally and normal sensation to monofilament Extrem General: Yes normal to inspection, Yes full ROM and Yes capillary refill normal Psych Appearance: grossly normal, well kempt and not disheveled Course Course Course Narrative: RME, this is a rapid medical exam performed by Buzz Mendez please refer to primary provider for complete H&P- 39-year-old male presents for evaluation of rectal bleeding. Patient reports symptoms started about a week and a half ago. He denies any pain in the abdomen or rectum. He reports that he went to [facility] yesterday, had labs drawn but left without being seen due to wait time. They called him today and told him that his blood counts were low. Plan for repeat labs and type and screen Medical Decision Making Medical Decision Making MDM Narrative: 39-year-old male healthy with a past medical history presents to ED for rectal bleeding week and a half. Patient describes his of bright red blood and some mild rectal pain. Patient denies any abdominal pain. Patient refused rectal exam. Patient is hemodynamically stable. H and H is stable. Presently no indication for abdominal CT scan. Patient will benefit from outpatient follow-up for colonoscopy with Gastroenterology. 3:16pm: Contacted [facility] but still have not been able to received patient most recent labs. Patient informed follow-up with primary care provider and Gastroenterology for outpatient colonoscopy. Presently not suspecting GI bleed. Patient explained worrisome signs and informed to return to the ED immediately. Not suspect abdominal perforation, or colitis. Differential Diagnosis Differential Diagnoses: The differential diagnosis associated with the presentation includes (Hemorrhoids) Admission/Observation Consideration of admission/observation: Escalation of care including admission/observation considered Lab Data MDM Lab Attestation statement: I reviewed the patient's lab results. 10/17/24 12:44 10/17/24 12:44 Labs: Lab Results 10/17/24 Range/Units 12:44 WBC 8.2 (4.8-10.8) X10*3/uL RBC 4.20 L (4.60-5.80) X10*6/uL Hgb 14.4 (14.0-18.0) g/dl Hct 39.4 L (42.0-52.0) % MCV 93.8 (80.0-98.0) fL MCH 34.3 H (27.0-33.0) pg MCHC 36.5 H (31.0-36.0) g/dl RDW 12.0 (11.0-16.0) % Plt Count 238 (160-400) X10*3/uL MPV 9.5 (9.4-12.4) fL Immature Gran % (Auto) 0.2 (0.0-0.4) % Neut % (Auto) 71.7 (45-73) % Lymph % (Auto) 17.2 L (20-40) % Bath % (Auto) 8.9 (2-11) % Eos % (Auto) 1.6 (0-4) % Baso % (Auto) 0.4 (0-2) % Lymph # (Auto) 1.4 (1.2-4.9) X10*3/uL Bath # (Auto) 0.7 (0.1-1.2) X10*3/uL Eos # (Auto) 0.1 (0.0-0.4) X10*3/uL Baso # (Auto) 0.0 (0.0-0.2) X10*3/uL Abs Immat Gran (auto) 0.02 (0.00-0.03) X10*3/uL Absolute Neuts (auto) 5.9 (2.0-8.3) x10*3/uL Absolute Nucleated RBC 0.000 (0.0-0.012) X10*3/uL Nucleated RBC % (auto) 0.0 (0.0-0.2) /100WBC PT 11.9 (10.9-12.4) SEC INR 1.0 (0.9-1.1) Sodium 140 (135-145) mmol/L Potassium 3.8 (3.3-5.1) mmol/L Chloride 107 (96-108) mmol/L Carbon Dioxide 27 (22-29) mmol/L Anion Gap 10 L (12-20) BUN 13 (9-16) mg/dL Creatinine 0.76 (0.5-1.4) mg/dL Estim Creat Clear Calc 139.5 Estimated GFR > 60 Random Glucose 126 H (60-115) mg/dL Calcium 8.7 D (8.4-10.2) mg/dL Total Bilirubin 0.7 (0.0-1.0) mg/dL AST 20 (5-37) U/L ALT 18 (0-40) U/L Alkaline Phosphatase 57 (39-117) U/L Total Protein 7.2 (6.5-8.0) g/dL Albumin 4.5 (3.5-5.0) g/dL Lipase 21 (8-78) U/L Blood Type A Positive Antibody Screen NEGATIVE Independent Historian Clinical information obtained from an independent historian. History obtained from or confirmed by: Other (Patient is) Discharge Plan Discharge Clinical Impression: Rectal bleeding Patient Disposition: Home, Self-Care Instructions: Rectal Bleeding (ED) Additional Instructions: Recommend follow-up with primary care provider and forging die finisher for possible repeat labs and colonoscopy. Return to the ED immediately for any abdominal pain, nausea, vomiting, fever, chills, profuse rectal bleeding, black stool, or any other concerning symptoms. Prescriptions: No Action prednisone 20 mg tablet 40 mg PO DAILY Qty: 14 0RF cetirizine [Zyrtec] 10 mg tablet 10 mg PO DAILY Qty: 30 0RF hydroxyzine HCl 50 mg tablet 50 mg PO TID PRN (Reason: itching) Qty: 30 0RF hydrocortisone 2.5 % cream 1 appl topical QID PRN (Reason: itching) Qty: 453.6 0RF penicillin V potassium 500 mg tablet 500 mg PO BID 10 Days Qty: 20 0RF naproxen 500 mg tablet 500 mg PO BID 7 Days Qty: 14 0RF ibuprofen 600 mg tablet 600 mg PO Q8H PRN (Reason: fever or pain) Qty: 30 0RF cyclobenzaprine 10 mg tablet 10 mg PO TID PRN (Reason: muscle spasm) Qty: 12 0RF Rx Instructions: do not drive or use machinery after taking this medication ondansetron 4 mg tablet,disintegrating 4 mg PO Q8H 4 Days Qty: 12 0RF naproxen [Naprosyn] 500 mg tablet 500 mg PO BID Qty: 20 0RF Referrals: [facility] [place] [facility] [Provider Group, Gastroenterology] - 2 days Referral Note: Rectal bleeding no abdominal pain Clinical Impression: Rectal bleeding Brianna Mcneal NP [Primary Care Provider, Internal Medicine] - 2 days Referral Note: Rectal bleeding Clinical Impression: Rectal bleeding Stand Alone Forms: Work/School Release Interventions: ED Discharge Assessment Last Done: 10/17/24 15:29 Discharge Date/Time: 10/17/24 15:29 Print Language: Somali
[2024-10-17 12:50] LABS: MANUAL DIFF FLAG NO
[2024-10-17 12:51] LABS: Hematocrit 39.4 % (42.0-52.0); Hemoglobin 14.4 g/dl (14.0-18.0); Imm Gran Abs Auto 0.02 X10*3/uL (0.00-0.03); Imm Gran Pct Auto 0.2 % (0.0-0.4); Lymphocytes Absolute Auto 1.4 X10*3/uL (1.2-4.9); Mean Corpuscular HGB Conc 36.5 g/dl (31.0-36.0); Mean Corpuscular Hemoglobin 34.3 pg (27.0-33.0); Mean Corpuscular Volume 93.8 fL (80.0-98.0); NRBC Abs Auto 0.000 X10*3/uL (0.0-0.012); NRBC Pct Auto 0.0 /100WBC (0.0-0.2); Platelet Count 238 X10*3/uL (160-400); Red Blood Count 4.20 X10*6/uL (4.60-5.80); White Blood Count 8.2 X10*3/uL (4.8-10.8)
[2024-10-17 12:58] LABS: INTERNATIONAL NORM RATIO 1.0 (0.9-1.1); Prothrombin Time 11.9 SEC (10.9-12.4)
[2024-10-17 13:09] LABS: Alanine Aminotransferase 18 U/L (0-40); Albumin Level 4.5 g/dL (3.5-5.0); Alkaline Phosphatase 57 U/L (39-117); Anion Gap 10 (12-20); Aspartate Amino Transferase 20 U/L (5-37); Blood Urea Nitrogen 13 mg/dL (9-16); Calcium 8.7 mg/dL (8.4-10.2); Carbon Dioxide 27 mmol/L (22-29); Chloride 107 mmol/L (96-108); Creatinine Clr Calc Pharmacy 139.5; Estimated Glomerular Filt Rate > 60; Lipase 21 U/L (8-78); Potassium 3.8 mmol/L (3.3-5.1); Sodium 140 mmol/L (135-145); Total Protein 7.2 g/dL (6.5-8.0)
[2024-10-17 15:29] VITALS: BP 122/71; PULSE 66; RESP 16; TEMP 36.4; O2SAT 99
== END 2024-10-17 15:29 | disposition home or self-care (01) ==
PROVIDERS: Physician Assistant; Emergency Provider Emergency Medicine; PCP Nurse Practitioner Family
DX: K62.5 Hemorrhage of anus and rectum (principal); K62.89 Other specified diseases of anus and rectum
CPT/HCPCS: 36415; 80053; 83690; 85025; 85610; 86850; 86900; 86901; 99282; 99283

== ENCOUNTER 2024-11-22 04:05 | Emergency (ER) | payer OTHER, SELFPAY ==
[2024-11-22 04:09] VITALS: BP 115/64; PULSE 61; RESP 18; TEMP 36.9; O2SAT 98; BMI 29.9
--- NOTE | 2024-11-22 05:22 | ED_ITS ---
HPI - Extremity Problem General Chief complaint: Extremity Problem Stated complaint: pain in right hand Time Seen by Provider: 11/22/24 05:07 Source: patient Mode of arrival: ambulatory Limitations: no limitations History of Present Illness ED Provider: Dr. Dominique Mendoza HPI Narrative: Patient comes to the emergency room complaining of several days of numbness tingling in the 2nd 3rd and 4th digits of the right hand. Patient states that he this has been going on for weeks, now notices that sometimes his fingers get a bit weak and occasionally drops objects. Patient states that this sensation in his hand is intact Patient states that his symptoms seem to be worse at night. Patient states that his 5th digit and his pinky finger feel completely normal. Patient denies any injuries. Patient works as a mechanical apprentice Related Data Previous Rx's ?Medication ?Instructions ?Recorded cetirizine 10 mg tablet (Zyrtec) 10 mg PO DAILY #30 ta bs 12/13/22 hydrocortisone 2.5 % topical cream 1 appl topical QID PRN itching 12/13/22 #453.6 grams hydroxyzine HCl 50 mg tablet 50 mg PO TID PRN itching #30 tabs 12/13/22 prednisone 20 mg tablet 40 mg (2 x 20 mg) PO DAILY # 14 tabs 12/13/22 naproxen 500 mg tablet (Naprosyn) 500 mg PO BID #20 ta bs 04/18/23 ondansetron 4 mg disintegrating 4 mg PO Q8H 4 days #12 tabs 04/18/23 tablet naproxen 500 mg tablet 500 mg PO BID 7 days #14 tab s 07/07/23 penicillin V potassium 500 mg 500 mg PO BID 10 days #2 0 tabs 07/07/23 tablet cyclobenzaprine 10 mg tablet 10 mg PO TID PRN muscle s pasm #12 08/29/24 tabs ibuprofen 600 mg tablet 600 mg PO Q8H PRN fever or p ain 08/29/24 #30 tabs ibuprofen 600 mg tablet 600 mg PO Q8H PRN pain #20 t abs 11/22/24 prednisone 20 mg tablet 20 mg PO DAILY #5 tabs 11/22 Allergies Allergy/AdvReac Type Severity Reaction Status Date / Time No Known Allergies Allergy Verified 11/22/24 04:09 Review of Systems Review of Systems: Constitutional : No Weight loss, No Fever, No Chills, No Night Sweats, No Fatigue, No Malaise ENT/Mouth : No Hearing loss, No Ear Pain, No Nasal Congestion, No Sinus Pain, No Hoarseness, No sore throat, No Rhinorrhea, No Swallowing Difficulty Eyes: No Eye Pain, No Swelling, No Redness, No Foreign Body, No Discharge, No Vision Changes Cardiovascular : No Chest Pain, No SOB, No Dyspnea on Exertion, No Orthopnea, No Edema, No Palpitations Respiratory : No Cough, No Sputum, No Wheezing, No Smoke Exposure, No Dyspnea Gastrointestinal : No Nausea, No Vomiting, No Diarrhea, No Constipation, No abdominal Pain, No Hematochezia, No Melena Genitourinary : no irregular bleeding, No Dysuria, No Urinary Frequency, No Hematuria, No Urinary Incontinence, No Urgency, No Flank Pain, No Urinary Flow Changes, No Hesitancy Musculoskeletal : No joint pain, No Myalgias, No Joint Swelling Skin : No Skin Lesions, No rash Neuro : No Weakness, No Numbness, complaining of a bit of numbness tingling in the 2nd 3rd and 4th digit of the right hand, occasionally drops objects due to weakness in dose fingers, states that the 5th finger and the thumb did not have any problems. No problem at the wrist either. No pain at the wrist Psych : No Anxiety/Panic, No Depression, No SI/HI/AH/VH, No Social Issues, Heme/Lymph: No Bruising, No Bleeding,No Lymphadenopathy Endocrine : No Polyuria, No Polydipsia, No Temperature Intolerance PMFSH Social History Social History Advance Directives: No Physical Exam Exam: Exam: Appearance: Alert. Oriented X3. No acute distress. Eyes: Pupils equal, round and reactive to light. ENT: Pharynx normal. Neck: Normal inspection. Neck supple. No lymph nodes noted. No crepitus CVS: Normal heart rate and rhythm. Pulses normal. Normal S1 and S2 Respiratory: No respiratory distress. Breath sounds normal. No Wheezing. No rales Abdomen: Soft and nontender. No rigidity. No distention. Skin: Skin warm and dry. Normal skin color. Normal skin turgor. Extremities: No lower extremity edema. No Lacerations. No Rash of the right hand, there is no erythema, no swelling, patient states that it hurts a bit to flex the 2nd 3rd and 4th fingers. Neuro: Oriented X 3. No motor deficit. No sensory deficit. Moving all extremities. No slurred speech. CN 2 through 12 grossly intact Psych: calm, cooperative, normal affect Vital Signs: Vital Signs: Last Vital Signs Temp 98.4 F 11/22/24 04:09 Pulse 61 11/22/24 04:09 Resp 18 11/22/24 04:09 BP 115/64 11/22/24 04:09 Pulse Ox 98 11/22/24 04:09 O2 Del Method Room Air 11/22/24 04:09 BMI result Body Mass Index 29.9 Medical Decision Making Medical Decision Making MDM Narrative: I discussed the physical exam with the patient, given his employment and physical findings, it is likely that patient has new onset carpal tunnel syndrome. Patient was given a prescription for steroids and ibuprofen. Also was given a wrist splint Patient instructed to follow-up with his primary care physician. Patient may need steroid injections and if severe, he may need an electromyogram Differential Diagnosis Differential Diagnoses: The differential diagnosis associated with the presentation includes (Carpal tunnel syndrome, arthritis, tendonitis) Discharge Plan Discharge Clinical Impression: Carpal tunnel syndrome Patient Disposition: Home, Self-Care Instructions: Carpal Tunnel Syndrome (DC) Additional Instructions: Please follow-up with your primary care physician tomorrow. If you have any worsening or new symptoms, please return to the emergency room or call 911 Prescriptions: New prednisone 20 mg tablet 20 mg PO DAILY Qty: 5 0RF ibuprofen 600 mg tablet 600 mg PO Q8H PRN (Reason: pain) Qty: 20 0RF No Action prednisone 20 mg tablet 40 mg PO DAILY Qty: 14 0RF cetirizine [Zyrtec] 10 mg tablet 10 mg PO DAILY Qty: 30 0RF hydroxyzine HCl 50 mg tablet 50 mg PO TID PRN (Reason: itching) Qty: 30 0RF hydrocortisone 2.5 % cream 1 appl topical QID PRN (Reason: itching) Qty: 453.6 0RF penicillin V potassium 500 mg tablet 500 mg PO BID 10 Days Qty: 20 0RF naproxen 500 mg tablet 500 mg PO BID 7 Days Qty: 14 0RF ibuprofen 600 mg tablet 600 mg PO Q8H PRN (Reason: fever or pain) Qty: 30 0RF cyclobenzaprine 10 mg tablet 10 mg PO TID PRN (Reason: muscle spasm) Qty: 12 0RF Rx Instructions: do not drive or use machinery after taking this medication ondansetron 4 mg tablet,disintegrating 4 mg PO Q8H 4 Days Qty: 12 0RF naproxen [Naprosyn] 500 mg tablet 500 mg PO BID Qty: 20 0RF Print Language: Sami
[2024-11-22 05:27] VITALS: BP 115/64; PULSE 61; RESP 18; TEMP 36.9; O2SAT 98
== END 2024-11-22 05:47 | disposition home or self-care (01) ==
PROVIDERS: Emergency Provider Emergency Medicine; PCP Nurse Practitioner Family
DX: G56.01 Carpal tunnel syndrome, right upper limb (principal)
CPT/HCPCS: 99283

== ENCOUNTER 2025-03-18 20:18 | Emergency (ER) | payer OTHER, SELFPAY ==
[2025-03-18 20:20] VITALS: BP 131/67; PULSE 94; RESP 16; TEMP 36.9; O2SAT 96; BMI 23.7
[2025-03-18 21:09] LABS: MANUAL DIFF FLAG NO
[2025-03-18 21:10] LABS: Hematocrit 42.3 % (42.0-52.0); Hemoglobin 15.0 g/dl (14.0-18.0); Imm Gran Abs Auto 0.04 X10*3/uL (0.00-0.03); Imm Gran Pct Auto 0.3 % (0.0-0.4); Lymphocytes Absolute Auto 0.5 X10*3/uL (1.2-4.9); Mean Corpuscular HGB Conc 35.5 g/dl (31.0-36.0); Mean Corpuscular Hemoglobin 33.6 pg (27.0-33.0); Mean Corpuscular Volume 94.6 fL (80.0-98.0); NRBC Abs Auto 0.000 X10*3/uL (0.0-0.012); NRBC Pct Auto 0.0 /100WBC (0.0-0.2); Platelet Count 240 X10*3/uL (160-400); Red Blood Count 4.47 X10*6/uL (4.60-5.80); White Blood Count 12.8 X10*3/uL (4.8-10.8)
[2025-03-18 21:24] LABS: Alanine Aminotransferase 17 U/L (0-40); Albumin Level 5.0 g/dL (3.5-5.0); Alkaline Phosphatase 68 U/L (39-117); Anion Gap 13 (12-20); Aspartate Amino Transferase 20 U/L (5-37); Blood Urea Nitrogen 16 mg/dL (9-16); Calcium 9.0 mg/dL (8.4-10.2); Carbon Dioxide 24 mmol/L (22-29); Chloride 105 mmol/L (96-108); Creatinine Clr Calc Pharmacy 140.3; Estimated Glomerular Filt Rate > 60; Potassium 3.9 mmol/L (3.3-5.1); Sodium 138 mmol/L (135-145); Total Protein 8.1 g/dL (6.5-8.0)
[2025-03-18 21:47] LABS: Resp Syncy Virus RNA Qual PCR NEGATIVE (Negative); SARS COV2 PCR INHOUSE NEGATIVE (Negative)
== END 2025-03-18 22:09 | disposition left against medical advice (07) ==
PROVIDERS: Emergency Provider Emergency Medicine; PCP Nurse Practitioner Family
DX: R11.2 Nausea with vomiting, unspecified (principal); R19.7 Diarrhea, unspecified; Z03.818 Encounter for observation for suspected exposure to other biological agents ruled out
CPT/HCPCS: 36415; 80053; 85025; 87637; 99281